=== PATIENT | male | born 1945 | race American Indian/Alaskan Native ===

== ENCOUNTER 2019-06-13 08:32 | Day surgery (SDC) | payer MEDICARE ==
[2019-06-13] MEDS ORDERED: SODIUM CHLORIDE 0.9% 1000 ML 1,000 ML ONE (09:25)
--- NOTE | 2019-06-13 09:41 | Anesthesia Day of Surgery ---
Anesthesia Day of Surgery - Day of Surgery Patient Examined: Yes Patient H&P Reviewed: Yes Patient is NPO: Yes Beta Blockers: Yes
--- NOTE | 2019-06-13 09:45 | Anesthesia Consultation ---
Anesthesia Consult and Med Hx Date of service: 06/13/19 - Airway Anesthetic Teeth Evaluation: Good ROM Head & Neck: Adequate Mental/Hyoid Distance: Adequate Mallampati Class: Class II Intubation Access Assessment: Good - Pre-Operative Health Status ASA Pre-Surgery Classification: ASA4 Proposed Anesthetic Plan: MAC - Pulmonary Hx Smoking: No (22yrs ago) COPD: Yes - Cardiovascular System Hx Hypertension: Yes Hx Coronary Artery Disease: Yes (CHF) Hx Heart Attack/AMI: Yes (2018. Stents X 4) - Endocrine Hx Renal Disease: Yes Hx End Stage Renal Disease: Yes (Last HD yesterday. On Kidney TX list) Hx Non-Insulin Dependent Diabetes: Yes (Off meds now)
[2019-06-13] MEDS ORDERED: LIDOCAINE MPF (2%) 20 MG/1 ML VIAL 5 ML ONE (11:00)
[2019-06-13] MEDS ORDERED: PROPOFOL 200 MG/20 ML VIAL IV ONE ×2 (11:08)
--- NOTE | 2019-06-13 11:29 | Short Stay Summary ---
Short Stay Documentation Date of service: 06/13/19 Narrative H&P: The patient presents for screening colonoscopy. Last study over 5 years ago. Old records not available. The patient has ESRD and is a transplant candidate. A pre transplant colonoscopy was requested. - History Past Medical History: CAD, hypertension, hyperlipidemia, renal failure (On PD) Past Surgical History: Other (Peritoneal dialysis catheter) Social history: no significant social history, , lives with family - Allergies and Medications Current Medications: Allergies tiotropium [From Spiriva with HandiHaler] Allergy (Unverified 06/13/19 08:33) CHEST PAIN/SUNIL Home Medications Medication Instructions Recorded Confirmed Last Taken Type Carvedilol 12.5 mg PO BID 09/14/13 09/15/13 09/15/13 History Pravastatin Sodium [Pravastatin] 20 mg PO DAILY 09/14/13 09/15/13 09/15/13 History Glimepiride 2 mg PO DAILY 09/15/13 09/15/13 09/15/13 History Insulin Aspart (Nf) [NovoLOG 100 100 units SC PRN PRN 09/15/13 09/15/13 09/14/13 History UNITS/ML VIAL] Insulin Detemir [Levemir Flexpen] 41 units SC DAILY 09/15/13 09/15/13 09/15/13 History Losartan [Cozaar] 50 mg PO DAILY 09/15/13 09/15/13 09/15/13 History amLODIPine 5 mg PO DAILY 09/15/13 09/15/13 09/15/13 History Active Medications Sodium Chloride (Nacl 0.9% 1000 Ml) 1,000 mls @ 50 mls/hr IV DIRECT KILO - Physical exam General appearance: no acute distress, well-nourished Integumentary: no rash, no growths, no abnormal pigmentation HEENT: Atraumatic, PERRLA, EOMI, Mucous membr. moist/pink Lungs: Clear to auscultation, Normal air movement Breasts: deferred Heart: Regular rate, Normal S1, Normal S2, No murmurs Gastrointestinal: normoactive bowel sounds, no tenderness, no distended, no masses, no guarding, no organomegaly Male Genitourinary: deferred Rectal Exam: deferred, normal exam-external/orifice, normal rectal tone, no mass Extremities: no ischemia, pulses intact, pulses symmetrical, No edema, normal temperature, normal color, Full ROM Neurological: Normal gait, Normal speech, Strength at 5/5 X4 ext, Normal tone, Sensation intact, Cranial nerves 3-12 NL - Brief post op/procedure progress note Date of procedure: 06/13/19 Findings: see dictated report. Estimated blood loss: none Pathology: none Condition: stable - Disposition Condition at discharge: Good Disposition: DC-01 TO HOME OR SELFCARE - Discharge Diagnoses (1) Colon cancer screening Status: Acute Short Stay Discharge Plan Activity: other (no driving for 24 hours. Restart Plavix and ASA today.) Weight Bearing Status: Full Weight Bearing Diet: regular Follow up with: ASHKAN MALDONADO JR, MD [Primary Care Provider] - 7 Days
--- NOTE | 2019-06-13 11:33 | Operative Report ---
Operative Report Operative Report: Date of procedure: 06/13/2019 Preprocedure diagnosis: Colon cancer screening. Previous colonoscopy more than 5 years ago. Colonoscopy screening requested prior to renal transplant. Post procedure diagnosis: Few left colon diverticula. Procedure: Colonoscopy to the cecum Endoscopist: Dr. Graves Anesthesia: Monitored anesthesia care per anesthesia department Estimated blood loss: 0 Medications: Monitored anesthesia care. See separate report by anesthesia for details. After careful discussion of the nature and purpose of the procedure as well as details of the technique risks benefits and alternatives the patient gave consent. Please see recent history and physical from the office. The patient was placed in the left lateral decubitus position and medicated per anesthesia. A rectal exam was performed sphincter tone was normal there were no masses palpable. The Olympus colonoscope was passed transanally and advanced under continuous direct vision without difficulty to the cecum. The colon was well prepared. The cecum was normal. The ascending colon was normal and on forward and ret roflexed views. The transverse colon is normal. There were a few diverticula in the descending and sigmoid colon. The rectum was normal on forward and retroflexed views. The procedure was well-tolerated overall and the patient was observed in recovery. Conclusions: Few left colon diverticula, otherwise normal colonoscopy to the cecum. Plan: Repeat colonoscopy in 10 years, sooner if clinically indicated. Signed electronically: Calvin Graves M.D.
[2019-06-13] MEDS ORDERED: WATER FOR IRRIG STERILE 250 ML BOTTLE IR ONE (11:34)
[2019-06-13] MEDS ORDERED: SODIUM CHLORIDE 0.9% 1000 ML 1,000 ML IV SCH (12:00)
[2019-06-13 12:16] VITALS: BP 157/65
--- NOTE | 2019-06-13 13:54 | Post Anesthesia Evaluation ---
- Post Anesthesia Evaluation Patient Participated: Yes Airway Patent: Yes Stable Respiratory Function: Yes Nausea/Vomiting: No Temp > 96.8F: Yes Pain Manageable: Yes Adequeate Hydration: Yes Anesthesia Complications: No Block Receding Appropriately: Not Applicable Patient on Ventilator: No
== END 2019-06-13 08:33 | disposition home or self-care (01) ==
LOC: GIO 08:32
PROVIDERS: ATTEND Internal Medicine Gastroenterology
DX: Z12.11 Encounter for screening for malignant neoplasm of colon (principal); K57.30 Diverticulosis of large intestine without perforation or abscess without bleeding; I25.10 Atherosclerotic heart disease of native coronary artery without angina pectoris; I12.0 Hypertensive chronic kidney disease with stage 5 chronic kidney disease or end stage renal disease; E11.22 Type 2 diabetes mellitus with diabetic chronic kidney disease; N18.6 End stage renal disease; J44.9 Chronic obstructive pulmonary disease, unspecified; Z98.890 Other specified postprocedural states; Z79.899 Other long term (current) drug therapy; Z79.4 Long term (current) use of insulin; Z99.2 Dependence on renal dialysis; Z94.0 Kidney transplant status
CPT/HCPCS: 82962; G0121; J2704; J7030